=== PATIENT | female | born 1990 | race Caucasian/White ===

== ENCOUNTER 2016-12-02 12:51 | Inpatient (IN) | payer MEDICAID ==
[2016-12-02] MEDS ORDERED: LR 1,000 ML IV PRN (13:30)
[2016-12-02] MEDS ORDERED: OLIVE OIL 118 ML BTL MISC PRN (13:30)
[2016-12-02] MEDS ORDERED: TERBUTALINE SULFATE 1 MG/ML VIAL IV PRN (13:30)
[2016-12-02] MEDS ORDERED: LIDOCAINE 1% 30 ML SDV SC PRN (13:30)
[2016-12-02] MEDS ORDERED: OXYTOCIN/RINGERS LACTATE 1,000 ML IV PRN (13:30)
[2016-12-02] MEDS ORDERED: EPSOM SALT 454 GM TP PRN (13:30)
[2016-12-02] MEDS ORDERED: BETAMETHASONE IM SYRINGE IM SCH (14:00)
[2016-12-02 14:14] LABS: % IMMATURE GRANULYOCYTES 0.5 % (0.0-1.1); ABSOLUTE IMMATURE GRANULOCYTES 0.06 10^3/uL (0.00-0.10); ADD DIFF? NO; ADD MORPH? NO; ADD SCAN? NO; ATYPICAL LYMPHOCYTE FLAG 0 (0-99); FRAGMENT RBC FLAG 0 (0-99); HEMATOCRIT 35.8 % (38.0-47.0); HEMOGLOBIN 12.3 g/dL (12.6-16.3); LEFT SHIFT FLG 0 (0-99); LIPEMIA HEMOLYSIS FLAG 90 (0-99); MEAN CELL HEMOGLOBIN 31.4 pg (27.9-34.1); MEAN CELL HEMOGLOBIN CONCENTR. 34.4 g/dL (32.4-36.7); MEAN CELL VOLUME 91.3 fL (81.5-99.8); MEAN PLATELET VOLUME 11.3 fL (8.7-11.7); PLATELET CLUMPS FLAG 30 (0-99); PLATELET COUNT 228 10^3/uL (150-400); RED BLOOD CELL COUNT 3.92 10^6/uL (4.18-5.33); RED CELL DISTRIBUTION WIDTH 13.1 % (11.5-15.2)
[2016-12-02] MEDS: CLINDAMYCIN 900 MG/DEXTROSE 50 ML IV SCH ×2 (14:29→22:04)
--- NOTE | 2016-12-02 15:04 | GHP ---
[f rep st] HISTORY AND PHYSICAL DATE OF ADMISSION: 12/02/2016 ADMITTING DIAGNOSES: 1. Intrauterine at 34 weeks. 2. premature rupture of membranes. HISTORY OF PRESENT ILLNESS: The patient is a 26-year-old 3, para 0-0-2- 0 at 34 weeks with an estimated due date of January 09, 2017, by a first- trimester ultrasound at 10 weeks. The patient presents as a transfer from [place], where she gets care, with premature rupture of membranes at 0900 this morning, blood-tinged fluid noted. The patient noted menstrual-type cramping about 45 minutes after ruptured membranes. On exam by her Ob, she was found to be grossly ruptured, 1 cm dilated. GBS culture was taken and sent with the patient along with her records. . The patient got good care in [place] and presented in her first trimester. Her is complicated by a family history of cleft lip and palate in her mom and her sister. She did have a level 3 ultrasound done, and this was normal. She has been seen by Neurology this for 2 episodes where she lost consciousness in the past, questionable mini strokes. She did have a CAT scan in 2012, which was reportedly normal. At this point, the neurologist does not feel she needs anticoagulation or additional surveillance. The patient does admit to use of medical marijuana every night to help with the nausea and help her keep food down-approved by her Ob in [place]. She is a former smoker but has not smoked any tobacco in this . PAST OBSTETRICAL HISTORY: In 2012, she had a spontaneous at 6 weeks. In 2013, she had another spontaneous . 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 Cycles are irregular. The patient has a history of PCOS. Last menstrual period 03/27/16. She denies any abnormal Pap smears or any exposure to STDs. Pap smear in was negative. She also had negative GC and chlamydia cultures in this . PAST MEDICAL HISTORY: Remarkable for asthma, PCOS, eczema, nephrolithiasis, panic disorder, postconcussion syndrome, and sciatica. PAST SURGICAL HISTORY: Includes lithotripsy in 2014, upper endoscopy 2012, right shoulder arthroscopy 2004, and reconstruction of cranial and facial bones by autograft secondary to dog bite in 1993. MEDICATIONS: ProAir, DHA, vitamin, Tums, and Ranitidine. ALLERGIES: Zyrtec and penicillin - hives. FAMILY HISTORY: Mom and sister with cleft lip and palate. 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 She is engaged to [employer]. She is a former smoker and quit before the . She admits to use of marijuana. Denies alcohol use in this . LABS: O positive. Antibody negative. Hepatitis B surface antigen negative. Rubella immune. HIV negative. RPR nonreactive. Third trimester H and H 11 and 35. One-hour Glucola was normal at 81. Pap smear negative. GC and chlamydia cultures negative. She declined all genetic testing. GBS status is pending, unknown at this time. PHYSICAL EXAMINATION: VITAL SIGNS: Stable. The patient is afebrile. GENERAL : Well-nourished, well-developed 26-year-old female, alert, oriented x3. No apparent distress. CARDIOVASCULAR: Regular rate and rhythm. LUNGS: Clear to auscultation. ABDOMEN: Gravid, soft, nontender, nondistended. EXTREMITIES: without edema and calf tenderness. PELVIC: Deferred at this time. MONITORING: There is a category I strip. Baseline 140 beats per minute. Positive accelerations. No decelerations. Moderate variability. On toco, there is uterine irritability and when adjusted contractions were seen every 2- 4 minutes. A bedside ultrasound was done, and confirmed cephalic presentation. ASSESSMENT: This is a 26-year-old 3, para 0-0-2-0, at 34 weeks with estimated due date 01/09/17 by first-trimester ultrasound, who presents with premature rupture of membranes. PLAN: 1. Admit to Labor and Delivery for expectant management. 2. Consulted with Perinatology, Mel Stephen, who agrees with expectant management at this time. 3. Will give steroids, BTMZ, for lung maturity. Repeat in 24 hours if able to. 4. Will treat with antibiotics, Clindamycin for GBS prophylaxis secondary to penicillin allergy and unknown GBS. 5. Consents were obtained for urine drug toxicity secondary to marijuana use in the . 6. Will start IVFs, suspect dehydration and increased uterine contractions. 7. CBC on admission and temp q 2 hours to r/o infection. 8. Will consult Earnest. /[id number]/MODL MTDD
[2016-12-02] MEDS: BETAMETHASONE IM SYRINGE IM SCH (15:28)
[2016-12-02 16:13] LABS: PHENCYCLIDINE URINE BCH < 6 ng/ml (NEGATIVE); PHENCYCLIDINE URINE BCH NEGATIVE (NEGATIVE)
[2016-12-02 16:25] LABS: TETRAHYDROCANNABINOL URINE 151 ng/mL (NEGATIVE)
[2016-12-02] MEDS ORDERED: LIDOCAINE 1% 30 ML SDV ONE (16:25)
[2016-12-02] MEDS ORDERED: AMMONIA AROMATIC 1 EACH AMP IH ONE (16:26)
[2016-12-02] MEDS ORDERED: TERBUTALINE SULFATE 1 MG/ML VIAL ONE (16:26)
[2016-12-02] MEDS ORDERED: OLIVE OIL 118 ML BTL ONE (16:26)
[2016-12-02] MEDS ORDERED: OXYTOCIN 10 UNIT/ML VIAL ONE (16:26)
[2016-12-02] MEDS ORDERED: MISOPROSTOL 200 MCG TAB ONE (16:27)
[2016-12-02] MEDS ORDERED: PROMETHAZINE HCL 25 MG TAB PO ONE (19:39)
--- NOTE | 2016-12-02 19:49 | OBPROG ---
OBG Progress Note Assessment/Plan: Assessment: 26 y/o @ 34 4/7 wks with PPROM Plan: Continue expectant management s/p BTMZ x 1 at 1500 Cont abx-Clindamycin q 8 hrs Will given Morphine/Phenergan for pain management FHTs - Cat I tracing 12/02/16 19:41 Subjective: Pt is having back pain with her ctx's that seem more painful. She is requesting pain medicine. Objective: 12/02/16 13:00 Patient ABO/Rh O POSITIVE 12/02/16 13:00 - SVE Dilation (cm): 2 Effacement (%): 80 Station: -2 Current Contraction Pattern: Irregular FHR (bpm): 140 FHR Pattern Variability: Moderate FHR Category: 1 Membranes: SROM Amniotic Fluid Color: Clear, Blood Tinged ICD10 Worksheet Patient Problems: Problems Problem Status Onset premature rupture of membranes (PPROM) with unknown onset of labor Acute
[2016-12-02] MEDS ORDERED: FAMOTIDINE 20 MG TAB ONE (20:18)
[2016-12-02] MEDS: FAMOTIDINE 20 MG TAB PO SCH (20:28)
[2016-12-02] MEDS ORDERED: RANITIDINE HCL 150 MG/10 ML UDCUP PO SCH (21:00)
[2016-12-03] MEDS ORDERED: fentaNYL 2MCG/ML/BUP 0.1% RTU 100 ML BAG EP ONE (02:53)
[2016-12-03] MEDS ORDERED: PHENYLEPHRINE HCL 100 MCG/ML SYR ONE (02:54)
[2016-12-03] MEDS ORDERED: BUPIVACAINE 0.25% 30 ML SDV ONE (02:54)
[2016-12-03] MEDS ORDERED: NALOXONE HCL 0.4 MG/ML INJ IVP PRN (03:41)
[2016-12-03] MEDS ORDERED: ONDANSETRON 4 MG/2 ML VIAL IVP PRN (03:41)
[2016-12-03] MEDS ORDERED: PHENYLEPHRINE HCL 100 MCG/ML SYR IVP PRN (03:41)
--- NOTE | 2016-12-03 03:41 | PREANESOB ---
Obstetric Pre-Anesthesia Info - General Info : 3 Para: 0 - Labor Status Cervical Dilation per last OB SVE: 2 Station per last OB SVE: -2 Amniotic Fluid Color: Clear, Blood Tinged PIH: No Magnesium Sulfate in Use: No Indications for Labor Analgesia: Pain Control Labor Epidural: Proposed Anesthesia Allergies/Adverse Reactions: Allergy/AdvReac Type Severity Reaction Status Date / Time latex Allergy Hives Verified 12/02/16 13:31 Latex, Natural Rubber Allergy Verified 12/02/16 13:30 penicillin G Allergy Hives Verified 12/02/16 13:30 Home Medications: Medication Instructions Recorded Albuterol Hfa Anes Only [Proair 8.5 gm IH PRN PRN 12/02/16 Hfa Icu (*)] Vit27&Calcium/Iron/FA 1 each PO DAILY 12/02/16 [ Rx 1 Tablet (RX)] Ranitidine HCl 150 mg PO BID 12/02/16 Visit Medications: Generic Name Dose Route Start Last Admin Trade Name Freq PRN Reason Stop Dose Admin Betamethasone Acet/Betameth SodPhos 12 mg 12/02/16 14:00 12/02/16 15:28 Celestone Im Syringe IM 12/03/16 14:01 12 mg Q24H VALERIE Administration Famotidine 20 mg 12/02/16 21:00 12/02/16 20:28 Pepcid PO 05/31/17 20:59 20 mg BID VALERIE Administration Clindamycin Phosphate/Dextrose 50 mls @ 100 mls/hr 12/02/16 14:00 12/02/16 22 :04 Cleocin 900 Mg (Premix) IV 01/01/17 13:59 50 mls Q8HRS VALERIE Administration Protocol Lactated Ringer's 1,000 mls @ 0 mls/hr 12/02/16 13:30 12/02/16 13:00 Lr IV 05/31/17 13:29 1,000 mls PRN PRN Administration SEE PROTOCOL CONDITIONS Protocol Per Protocol Oxytocin/Lactated Ringer's 1,000 mls @ 150 mls/hr 12/02/16 13:30 Pitocin 20 Units/Lr (Premix) IV PRN PRN Post- bleeding Ibuprofen 600 mg 12/02/16 13:30 Motrin PO 05/31/17 13:29 Q6HRS PRN post , inflammation Lidocaine HCl 30 ml 12/02/16 13:30 Lidocaine Hcl 1% SC 05/31/17 13:29 ONCE PRN Episiotomy Magnesium Sulfate 454 gm 12/02/16 13:30 Epsom Salt TP 05/31/17 13:29 PRN PRN perineal discomfort [place] Oil 118 ml 12/02/16 13:30 Sweet Oil MISC 05/31/17 13:29 ONCE PRN preneal massage Terbutaline Sulfate 0.25 mg 12/02/16 13:30 Brethine IV 05/31/17 13:29 ONCE PRN Tachysystole Discontinued Medications Generic Name Dose Route Start Last Admin Trade Name Freq PRN Reason Stop Dose Admin Ammonia (Aromatic Spirit) Confirm 12/02/16 16:26 Ammonia Aromatic Administered 12/02/16 16:27 Dose 1 each IH .STK-MED ONE Bupivacaine HCl Confirm 12/03/16 02:54 Sensorcaine 0.25% Sdv Administered 12/03/16 02:55 Dose 30 ml .ROUTE .STK-MED ONE Ephedrine Sulfate Confirm 12/02/16 16:26 Ephedrine Sulfate Administered 12/02/16 16:27 Dose 50 mg .ROUTE .STK-MED ONE Famotidine Confirm 12/02/16 20:18 Pepcid Administered 12/02/16 20:19 Dose 20 mg .ROUTE .STK-MED ONE Fentanyl/Bupivacaine HCl Confirm 12/03/16 02:53 Fentanyl/Bupivacaine/Ns 2 Mcg/Ml 0.1% (Premix Administered 12/03/16 02:54 Dose 100 ml EP .STK-MED ONE Lidocaine HCl Confirm 12/02/16 16:25 Lidocaine Hcl 1% Administered 12/02/16 16:26 Dose 30 ml .ROUTE .STK-MED ONE Misoprostol Confirm 12/02/16 16:27 Cytotec Administered 12/02/16 16:28 Dose 1,000 mcg .ROUTE .STK-MED ONE Morphine Sulfate 10 mg 12/02/16 20:00 12/02/16 20:28 Morphine IM 12/02/16 20:01 10 mg ONCE ONE Administration Maywood Oil Confirm 12/02/16 16:26 Sweet Oil Administered 12/02/16 16:27 Dose 118 ml .ROUTE .STK-MED ONE Oxytocin Confirm 12/02/16 16:26 Pitocin Administered 12/02/16 16:27 Dose 30 unit .ROUTE .STK-MED ONE Phenylephrine HCl Confirm 12/03/16 02:54 Earnest-Synephrine Administered 12/03/16 02:55 Dose 1,000 mcg .ROUTE .STK-MED ONE Promethazine HCl 25 mg 12/02/16 19:39 12/02/16 20:28 Phenergan PO 12/02/16 19:40 25 mg ONCE ONE Administration Terbutaline Sulfate Confirm 12/02/16 16:26 Brethine Administered 12/02/16 16:27 Dose 1 mg .ROUTE .STK-MED ONE - Anesthesia History Response to Local Anesthetics: Normal Anesthesia & Operative History: No Prior Problems Family Anesthesia History: Negative - Social History Substance Use/Abuse: Denies - Focused Exam Blood Pressure: 123/70 Heart Rate: 68 Respiratory Rate: 18 Height/Weight (Nursing): Height 175.26 cm Weight 101.151 kg Weight: 101 kg Height: 175 cm Airway: from//nl Respiratory: chest non-tender Cardiovascular: normal peripheral pulses ASA Status: II Labs: 12/02/16 13:00 Patient ABO/Rh O POSITIVE 12/02/16 13:00 - Plan Anesthetic Plan: SASHA Consent Signed and on Chart: Yes Patient/Guardian Understands and Agrees to Plan: Yes
[2016-12-03] MEDS ORDERED: ONDANSETRON 4 MG/2 ML VIAL ONE (03:59)
[2016-12-03] MEDS ORDERED: LR 500 ML IV SCH (04:00)
[2016-12-03] MEDS ORDERED: fentaNYL 2MCG/ML/BUP 0.1% RTU 100 ML EP SCH (04:00)
[2016-12-03] MEDS ORDERED: ONDANSETRON 4 MG/2 ML VIAL IVP ONE (04:30)
[2016-12-03] MEDS: CLINDAMYCIN 900 MG/DEXTROSE 50 ML IV SCH (05:36)
[2016-12-03] MEDS ORDERED: HEMABATE 250 MCG/1 ML AMP IM ONE (07:28)
[2016-12-03] MEDS: BETAMETHASONE IM SYRINGE IM SCH (08:12)
--- NOTE | 2016-12-03 08:19 | OBPROG ---
OBG Progress Note Assessment/Plan: Assessment: 26 y/o @ 34 weeks with PPROM now in labor Plan: Will give 2nd dose of BMZ now and re check in 2 hours or sooner. 12/03/16 08:13 Subjective: Pt is beginning to feel more pelvic pressure. Objective: 12/02/16 13:00 Patient ABO/Rh O POSITIVE 12/02/16 13:00 Temp Pulse Resp BP Pulse Ox 68 18 123/70 H 12/03/16 03:40 12/03/16 03:40 12/03/16 03:40 - SVE Dilation (cm): 8 Effacement (%): 100 Station: +1 Current Contraction Pattern: Regular (Q 5) FHR (bpm): 140 FHR Pattern Variability: Moderate FHR Category: 1 Membranes: SROM Amniotic Fluid Color: Clear ICD10 Worksheet Patient Problems: Problems Problem Status Onset premature rupture of membranes (PPROM) with unknown onset of labor Acute
[2016-12-03] MEDS: FAMOTIDINE 20 MG TAB PO SCH ×2 (11:28→20:40)
--- NOTE | 2016-12-03 11:39 | OBPROC ---
- Labor and Delivery Onset of Contractions Date: 12/03/16 Onset of Contractions Time: 00:30 Onset of Contractions Type: Spontaneous Rupture of Membranes Date: 12/02/16 Rupture of Membranes Time: 09:00 Rupture of Membranes Type: Premature Amniotic Fluid Color: Clear Dilation Complete Time: 09:31 Delivery Type: Spontaneous Placenta Delivery Date: 12/03/16 Placenta Delivery Time: 11:01 Episiotomy/Laceration: Periurethral (left) Repair: 3-0, Vicryl EBL: 250 Complications: Other (Specify) (pre-term, pre-mature rupture of the membranes) - Medications Labor Augmentation/Induction Meds Used: None Anesthesia: Epidural, Local (Specify) (1% lidocaine) - Info Infant A Delivery Date: 12/03/16 Delivery Time: 10:57 Sex of Infant: Female [place] Weight (gm): 2523.108 g Score (1 Min): 7 Score (5 Min): 8
[2016-12-03] MEDS: IBUPROFEN 600 MG TAB PO PRN ×2 (11:52→18:11)
[2016-12-03] MEDS ORDERED: HYDROCORTISONE 0.5% CREAM TP PRN (14:01)
[2016-12-03] MEDS ORDERED: ACETAMINOPHEN 325 MG TAB PO PRN (14:01)
[2016-12-03] MEDS ORDERED: SIMETHICONE 80 MG TAB CHEW PO PRN (14:01)
[2016-12-04] MEDS: IBUPROFEN 600 MG TAB PO PRN ×4 (00:22→20:25)
[2016-12-04] MEDS: DOCUSATE SODIUM 100 MG CAP PO PRN ×3 (00:22→20:25)
--- NOTE | 2016-12-04 09:43 | SOAPPROG ---
SOAP Progress Note Assessment/Plan: Assessment: 26y/o s/p PPROM delivery @34wks. in NICU. Plan: Routine PP care. Con't PO iron. Anticipate d/c home tmrw. 12/04/16 09:37 Subjective: Pt doing well. Reports lochia light. Voiding without difficulty. Denies BM, + flatus. Bottle-feeding with donor milk. Denies feelings of depression/blues. Objective: Vital Signs Temp Pulse Resp BP Pulse Ox 36.3 C 94 19 127/72 H 12/03/16 20:00 12/03/16 20:00 12/03/16 20:00 12/03/16 20:00 Laboratory Results 12/02/16 13:00 12/03/16 12/04/16 12/05/16 05:59 05:59 05:59 Output Total 250 Balance -250 Physical Exam - Physical Exam General Appearance: alert, no apparent distress Respiratory: lungs clear, normal breath sounds Cardiac/Chest: regular rate, rhythm, edema (+1 BLE edema) Abdomen: non-tender, soft, other (fundus firm @U-1) Skin: normal color, warm/dry Extremities: normal range of motion Neuro/Psych: alert, normal mood/affect, oriented x 3 ICD10 Worksheet Patient Problems: Problems Problem Status Onset (normal spontaneous vaginal delivery) Acute
[2016-12-04 10:56] VITALS: O2SAT 93
[2016-12-04] MEDS: FAMOTIDINE 20 MG TAB PO SCH ×2 (14:03→20:24)
[2016-12-04] MEDS: HYDROCODONE/APAP 5/325 TAB PO PRN (21:57)
[2016-12-05] MEDS: IBUPROFEN 600 MG TAB PO PRN ×3 (02:52→14:20)
[2016-12-05] MEDS: HYDROCODONE/APAP 5/325 TAB PO PRN ×2 (04:00→11:52)
[2016-12-05] MEDS: FAMOTIDINE 20 MG TAB PO SCH (08:33)
[2016-12-05] MEDS: DOCUSATE SODIUM 100 MG CAP PO PRN (08:33)
[2016-12-05 10:33] VITALS: BP 106/63; PULSE 59; RESP 20; TEMP 98.3
--- NOTE | 2016-12-05 12:32 | OBPROG ---
OBG Progress Note Assessment/Plan: Assessment: 26 y/o PPD #2 s/p after PPROM @ 34 5/7 weeks. Plan: We will give bowel protocol to encourage a BM. She will be discharged to [facility] today with Rx [place] and Ibuprofen. Follow-up @ [facility] or her doctor in [place] at 4 and 6 weeks. 12/03/16 08:13 12/05/16 12:31 Subjective: Pt is doing well today. She continues to have cramping and took [place] last night and this am. She is also taking Ibuprofen Q 6 hours. She is ambulating and voiding without difficulty and has min lochia. Baby is under bili lights but doing well and she is bottle feeding without issues of breast engorgement. Objective: 12/02/16 13:00 Patient ABO/Rh O POSITIVE 12/02/16 13:00 Group B Strep DNA NEGATIVE (NEGATIVE) 12/02/16 09:45 Temp Pulse Resp BP Pulse Ox 36.8 C 59 L 20 106/63 93 12/05/16 08:00 12/05/16 08:00 12/05/16 08:00 12/05/16 08:00 12/05/16 08:00 Uterine Position/Fundal Height: Umbilicus -3 Uterine Tone: Firm - Physical Exam General Appearance: WD/WN, alert, no apparent distress Neck: non-tender, full range of motion, supple Respiratory: chest non-tender, lungs clear, normal breath sounds Cardiac/Chest: regular rate, rhythm Abdomen: normal bowel sounds Extremities: swelling (no), Shyla's sign (neg) ICD10 Worksheet Patient Problems: Problems Problem Status Onset (normal spontaneous vaginal delivery) Acute
[2016-12-05] MEDS ORDERED: MAGNESIUM HYDROXIDE 30 ML UDCUP PO PRN (14:55)
[2016-12-05] MEDS ORDERED: POLYETHYLENE GLYCOL 3350 17 GM PKT PO PRN (14:55)
[2016-12-05] MEDS ORDERED: BISACODYL 10 MG SUPP PR PRN (14:55)
[2016-12-05] MEDS ORDERED: LACTULOSE 20 GM/30 ML UDCUP PO PRN (14:55)
[2016-12-05] MEDS ORDERED: SENNOSIDES/DOCUSATE SODIUM TAB PO SCH (21:00)
== END 2016-12-05 16:10 | disposition home or self-care (01) | DRG 775 ==
LOC: FLD 12:51 → FOB 12-03 13:46
PROVIDERS: ADMIT Obstetrics & Gynecology; ATTEND Obstetrics & Gynecology
PROC: 10E0XZZ Delivery of Products of Conception, External Approach (ICD-10-PCS; principal; 2016-12-03)
PROC: 0UQMXZZ Repair Vulva, External Approach (ICD-10-PCS; principal; 2016-12-03)
DX: O42.013 Preterm premature rupture of membranes, onset of labor within 24 hours of rupture, third trimester (principal); O71.82 Other specified trauma to perineum and vulva; O60.13X0 Preterm labor second trimester with preterm delivery third trimester, not applicable or unspecified; Z3A.34 34 weeks gestation of pregnancy; Z37.0 Single live birth
CPT/HCPCS: 80307; G0480; J0702; J2370; J2405; J2590; J3105